=== PATIENT | female | born 1955 | race Caucasian/White ===

== ENCOUNTER → 2020-03-18 | Emergency (ER) | payer OTHER ==
[~2020-03-18] VITALS: Ht 175.3 cm; Wt 90.7 kg
[~2020-03-18] MED LIST: BISOPROLOL FUMA10 MG PO; CALTRATE 600 +1 EACH PO; DICLOFENAC POTA50 MG PO; GORDO-VITE E15 GM PO; LEXAPRO PO; PERCOCET 5-3251 EACH PO; SIMVASTATIN40 MG PO
== END | disposition home or self-care (01) ==
LOC: ER 09:04
DX: S42.252A Displaced fracture of greater tuberosity of left humerus, initial encounter for closed fracture (principal); W18.39XA Other fall on same level, initial encounter; Y93.89 Activity, other specified; Y92.098 Other place in other non-institutional residence as the place of occurrence of the external cause; Y99.8 Other external cause status